=== PATIENT | female | born 1955 | race Caucasian/White ===

== ENCOUNTER 2019-11-12 09:10 | Outpatient (CLI) | payer OTHER ==
--- NOTE | 2019-11-12 15:14 | Mammography Report ---
Reason: ROUTINE MAMMO Procedure Date: 11/12/2019 Accession Number: [id number] / [id number] Procedure: MGN - Screening Mammo Dig Bilat CPT Code: Final Report FULL RESULT: EXAM: Screening Mammo Dig Bilat DATE: 11/12/2019 9:43 AM CLINICAL HISTORY: Screening encounter. TECHNIQUE: (B) - Bilateral CC and MLO views were obtained. COMPARISON: 06/19/2018 through 01/24/2014. PARENCHYMAL PATTERN: (A) - The breast(s) demonstrate(s) scattered fibroglandular densities. FINDINGS: There are no suspicious masses, calcifications, or areas of distortion. IMPRESSION: Negative examination. BI-RADS category 1. RECOMMENDATION: (ANNUAL) - Recommend routine annual screening mammography. BI-RADS CATEGORY: (1) - Negative. STANDARD QUALIFYING STATEMENTS: 1. This examination was not reviewed with the aid of Computer-Aided Detection (CAD). 2. A negative or benign imaging report should not preclude biopsy if clinically suspicious findings are present. 3. Dense breasts may obscure an underlying neoplasm. 4. This examination was reviewed without the aid of 3D breast imaging (tomosynthesis).
== END 2019-11-12 09:11 | disposition home or self-care (01) ==
LOC: DI.N 09:10
DX: Z12.31 Encounter for screening mammogram for malignant neoplasm of breast (principal)
CPT/HCPCS: 77067

== ENCOUNTER 2023-08-06 09:28 | Outpatient (CLI) | payer MEDICARE, OTHER ==
[2023-08-06 12:50] LABS: BASOPHILS % (AUTO) 0.5 %; EOSINOPHILS # (AUTO) 0.1 10^3/uL (0.0-0.7); EOSINOPHILS % (AUTO) 2.3 %; HCT - HEMATOCRIT 43.6 % (37.0-47.0); HGB - HEMOGLOBIN 13.9 g/dL (12.0-16.0); LYMPHOCYTES # (AUTO) 1.5 10^3/uL (1.5-3.5); LYMPHOCYTES % (AUTO) 37.8 %; MEAN CORPUSCULAR HEMOGLOBIN 30.2 pg (27.0-31.0); MEAN CORPUSCULAR HGB CONC 31.9 g/dL (32.0-36.0); MEAN CORPUSCULAR VOLUME 94.6 fL (81.0-99.0); MEAN PLATELET VOLUME 11.5 fL (7.9-10.8); MONOCYTES # (AUTO) 0.4 10^3/uL (0.0-1.0); MONOCYTES % (AUTO) 10.3 %; NEUTROPHILS % (AUTO) 49.1 %; PLT - PLATELET COUNT 259 10^3/uL (130-450); RED BLOOD COUNT 4.61 10^6/uL (4.20-5.40); RED CELL DISTRIBUTION WIDTH 11.9 % (12.0-15.0)
[2023-08-06 13:01] LABS: ALBUMIN 4.3 g/dL (3.2-5.5); ALBUMIN/GLOBULIN RATIO 1.6 (1.0-2.2); ALKALINE PHOSPHATASE 84 IU/L (42-121); ALT ALANINE AMINOTRANSFERASE 24 IU/L (10-60); AST ASPARTATE AMINOTRANSFERASE 24 IU/L (10-42); BUN - BLOOD UREA NITROGEN 15 mg/dL (6-20); CARBON DIOXIDE - CO2 30 mmol/L (21-32); CHLORIDE 105 mmol/L (101-111); CHOLESTEROL 202 mg/dL; CREATININE 0.7 mg/dL (0.6-1.3); GFR - MDRD 84 (>89); GLUCOSE 89 mg/dL (74-104); HDL CHOLESTEROL 68 mg/dL; LDL CHOLESTEROL,CALCULATED 118 mg/dL; LDL/HDL RATIO 1.7 (<4.4); POTASSIUM 4.2 mmol/L (3.5-4.5); SODIUM 140 mmol/L (135-145); TRIGLYCERIDES 78 mg/dL (48-352); VLDL CHOLESTEROL 16 mg/dL
[2023-08-06 13:05] LABS: THYROID STIMULATING HORMONE 1.75 uIU/mL (0.34-5.60)
[2023-08-06 13:25] LABS: ESTIMATED AVERAGE GLUCOSE 94 mg/dL (70-100); HEMOGLOBIN A1c% 4.9 % (4.27-6.07)
== END 2023-08-06 09:29 | disposition home or self-care (01) ==
LOC: LAB.N 09:28
PROVIDERS: ATTEND Nurse Practitioner Family
DX: Z00.00 Encounter for general adult medical examination without abnormal findings (principal); Z13.1 Encounter for screening for diabetes mellitus; R79.89 Other specified abnormal findings of blood chemistry
CPT/HCPCS: 36415; 80053; 80061; 83036; 83721; 84443; 85025

== ENCOUNTER 2023-08-20 08:11 | Outpatient (CLI) | payer MEDICARE, OTHER ==
--- NOTE | 2023-08-21 10:19 | Mammography Report ---
BILATERAL DIGITAL SCREENING MAMMOGRAM 3D/2D: 08/20/2023 CLINICAL: Routine screening. Comparison is made to exam dated: 06/19/2018 mammogram. There are scattered areas of fibroglandular density in both breasts (category b / 25%-50% glandular t issue). No significant masses, calcifications, or other findings are seen in either breast. There has been no significant interval change. IMPRESSION: NEGATIVE There is no mammographic evidence of malignancy. A 1 year screening mammogram is recommended. Based on the Tyrer Cuzick model (a risk assessment model) the patients lifetime risk is 5.0% and her 10 year risk is 2.4%. According to the ACR, ACS, and NCCN guidelines, an annual breast MRI exam james g with mammogram is recommended if the patients lifetime risk is 20% or greater. This exam was interpreted at Station ID: [id number]. NOTE: For mammograms, a report in lay terms will be sent to the patient. Approximately 15% of breast malignancies will not be visualized mammographically. In the management of a palpable breast mass, a negative mammogram must not discourage biopsy of a clinically suspicious lesion. Electronically Signed By: Angelica Domínguez M.D., PH.D eb/kaye:08/20/2023 21:23:46 letter sent: No_Letter ACR BI-RADS Category 1: Negative 3341F PARENCHYMAL PATTERN: (A) - The breast(s) demonstrate(s) scattered fibroglandular densities. BI-RADS CATEGORY: (1) - 1 Mammogram [id number] 1 year screening LATERALITY: (B)
== END 2023-08-20 08:12 | disposition home or self-care (01) ==
LOC: DI.N 08:11
DX: Z12.31 Encounter for screening mammogram for malignant neoplasm of breast (principal); R92.323 Mammographic fibroglandular density, bilateral breasts

== ENCOUNTER 2023-09-10 10:37 | Outpatient (CLI) | payer MEDICARE, OTHER ==
--- NOTE | 2023-09-10 14:08 | DEXA Report ---
PROCEDURE: Dexa Spine and/or Hip INDICATIONS: POST MENOPAUSAL TECHNIQUE: Dual energy x-ray absorptiometry (DXA) was performed on a [employer] System. Regions measur ed are the AP Spine, femoral neck, and if needed forearm. COMPARISON: None FINDINGS: Lumbar Spine: Bone Mineral Density 0.88 g/cm/cm,T score -2.4. Left Femoral Neck: Bone Mineral Density 0.695 g/cm/cm, T score -2.5. Left Hip: Bone Mineral Density 0.706 g/cm/cm,T score -2.4. (T score greater or equal to -1.0: NORMAL) (T score from -1.1 to -2.4: OSTEOPENIA) (T score less than or equal to -2.5 to: OSTEOPOROSIS) Impression: By WHO criteria, this patient has osteoporosis. Patients with diagnosis of osteoporosis or osteopenia should have regular bone mineral density assess ment. For those eligible for Medicare, routine testing is allowed once every 2 years. Testing frequ ency can be increased for patients who have rapidly progressing disease or for those who are receivin g medical therapy to restore bone mass. Reviewed by: Patricio Sanchez MD on 09/10/2023 2:06 PM PST Approved by: Patricio Sanchez MD on 09/10/2023 2:06 PM PST Station ID: [id number]
== END 2023-09-10 10:38 | disposition home or self-care (01) ==
LOC: DI 10:37
PROVIDERS: ATTEND Nurse Practitioner Family
DX: Z78.0 Asymptomatic menopausal state (principal); M81.0 Age-related osteoporosis without current pathological fracture

== ENCOUNTER 2023-10-08 08:34 | Day surgery (SDC) | payer MEDICARE, OTHER ==
[2023-10-08] MEDS ORDERED: LACTATED RINGERS 1,000 ML IV ONE ×2 (08:53→09:53)
--- NOTE | 2023-10-08 09:08 | ANESTHESIA ---
Pre-Anesthesia VS, & Labs - Diagnosis SCREENING - Procedure COLONOSCOPY Vital Signs: Temp Pulse Resp BP Pulse Ox O2 Flow Rate 36.2 C L 79 10 L 123/82 H 99 10/08/23 08:45 10/08/23 08:45 10/08/23 08:45 10/08/23 08:45 10/08/23 08:45 Height: 5 ft 4 in Weight (kg): 70 kg Body Mass Index: 26.4 BMI Classification: Overweight - Is Patient ?: No Home Medications and Allergies Home Medications: Ambulatory Orders No Known Home Medications 10/07/23 No Known Home Medications 10/07/23 Allergies/Adverse Reactions: Allergies Allergy/AdvReac Type Severity Reaction Status Date / Time No Known Drug Allergies Allergy Verified 10/07/23 12:51 Anes History & Medical History - Anesthetic History Anesthesia Complications: reports: No previous complications Family history of Anesthesia Complications: Denies Family history of Malignant Hyperthermia: Denies - Medical History Cardiovascular: reports: None Pulmonary: reports: None Gastrointestinal: reports: None Urinary: reports: None Musculoskeletal: reports: None Endocrine/Autoimmune: reports: None Skin: reports: None Results - EKG Results EKG Comparison: Reviewed EKG Exam General: Alert Dental: WNL Mouth Openin Fingerbreadth Neck Mobility: Normal Mallampati classification: II Thyromental Distance: 4-6 cm Plan Anesthesia Type: Total IV Consent for Procedure(s) Verified and Reviewed: Yes Code Status: Attempt Resuscitation ASA classification: 1-Healthy patient Is this case an emergency?: No
[2023-10-08] MEDS ORDERED: PROPOFOL 500 MG/50 ML 500 MG/50 ML VIAL ONE (09:11)
[2023-10-08 10:33] VITALS: BP 93/64; O2SAT 99
--- NOTE | 2023-10-08 13:41 | ANESTHESIA POST OP EVALUATION ---
Anesthesia Post Eval - Post Anesthesia Eval Vitals: Last Vital Signs Temp 36.0 C L 10/08/23 10:07 Pulse 69 10/08/23 10:07 Resp 16 10/08/23 10:07 BP 93/64 10/08/23 10:07 Pulse Ox 99 10/08/23 10:07 O2 Flow Rate CV Function Including HR & BP: Stable Pain Control: Satisfactory Nausea & Vomiting: Negative Mental Status: Baseline Respiratory Status: Airway Patent Hydration Status: Satisfactory Anesthesia Complications: None
== END 2023-10-08 08:35 | disposition home or self-care (01) ==
LOC: SDS 08:34
PROVIDERS: ATTEND Surgery
DX: Z12.11 Encounter for screening for malignant neoplasm of colon (principal); Z80.0 Family history of malignant neoplasm of digestive organs; Z80.6 Family history of leukemia
CPT/HCPCS: G0121; J7120